=== PATIENT | male | born 1985 | race Caucasian/White ===

== ENCOUNTER 2017-01-09 06:57 | Day surgery (SDC) ==
[2017-01-09] MEDS ORDERED: LIDOCAINE 1% 20 ML MDV ID ONE (08:15)
[2017-01-09] MEDS ORDERED: DIPRIVAN 20 ML VIAL IVP ONE (09:33)
[2017-01-09] MEDS ORDERED: VERSED ONE (09:33)
--- NOTE | 2017-01-10 07:29 | OP ---
PROCEDURE: COLONOSCOPY TO THE CECUM. ENDOSCOPIST: Nanda THURMAN M.D. INDICATION: HISTORY OF ADENOMATOUS POLYPS INSTRUMENT: [id number]. MEDICATION: PER ANESTHESIA. LAST COLONOSCOPY: 2011 PROCEDURE: The patient was positioned for colonoscopy. The digital rectal exam was negative. The colonoscope was inserted through the anus and advanced to the cecum. The cecum was identified using the ileocecal valve and the appendiceal orifice as landmarks. The scope was slowly withdrawn through an adequately prepped colon. The terminal ileum was briefly intubated and was normal. There was no evidence of polyp, mass or inflammation on this exam. Small hemorrhoids were seen in retroflex exam. No other abnormalities were noted. Withdraw time 6 minutes and 30 seconds. PLAN: 1. Suggest repeat colonoscopy in 5 years MTDD
[2017-01-10 08:25] VITALS: BP 123/66; TEMP 98.6
== END 2017-01-09 10:40 | disposition home or self-care (01) ==
LOC: SURG 06:57
PROVIDERS: ATTEND Internal Medicine Gastroenterology
DX: Z09 Encounter for follow-up examination after completed treatment for conditions other than malignant neoplasm (principal); Z86.010 Personal history of colon polyps; K64.9 Unspecified hemorrhoids